=== PATIENT | male | born 1970 | race Caucasian/White ===

== ENCOUNTER 2023-01-12 08:23 | Inpatient (IN) | payer OTHER ==
[2023-01-12] VITALS (23 sets, daily range): BP systolic 65–174; BP diastolic 45–103; PULSE 46–147; RESP 16–34; TEMP 93.7–98.2; O2SAT 81–100
[~2023-01-12] VITALS: Ht 188 cm; Wt 92.0 kg
[2023-01-12] MEDS ORDERED: NOREPINEPHRINE 8 MG/0.9 % NACL 250 ML IV ONE (08:32)
[2023-01-12] MEDS ORDERED: PHENYLEPHRINE HCL IN 0.9% NACL 400 MCG/10 ML SYRINGE IVP ONE ×2 (08:32→12:39)
[2023-01-12] MEDS ORDERED: PHENYLEPHRINE HCL 400 MG in DEXTROSE 5%-WATER 210 ML IV PRN (08:45)
[2023-01-12] MEDS ORDERED: SODIUM CHLORIDE 0.9% 2,000 ML IV ONE (08:45)
[2023-01-12 08:51] LABS: BASOPHILS % (AUTO) 0.8 % (0.0-2.0); EOSINOPHILS % (AUTO) 2.1 % (1.0-6.0); HEMATOCRIT 44.4 % (41-53); HEMOGLOBIN 14.9 g/dL (13.5-17.5); LYMPHOCYTES # (AUTO) 5.4 K/uL (1.0-4.8); LYMPHOCYTES % (AUTO) 54.1 % (22.0-44.0); MEAN CORPUSCULAR HEMOGLOBIN 31.2 pg (26.0-34.0); MEAN CORPUSCULAR HGB CONC 33.5 G/dL (31.0-37.0); MEAN CORPUSCULAR VOLUME 93 fL (80-100); MONOCYTES # (AUTO) 0.4 K/uL (0.1-1.0); MONOCYTES % (AUTO) 4.3 % (2.0-9.0); NEUTROPHILS # (AUTO) 3.9 K/uL (1.8-7.7); NEUTROPHILS % (AUTO) 38.7 % (40.0-70.0); PLATELET COUNT (AUTO) 231 K/uL (150-450); RED BLOOD CELL COUNT(AUTO) 4.76 MIL/uL (4.50-5.90); RED CELL DISTRIBUTION WIDTH 13.4 % (11.5-14.5)
[2023-01-12 08:56] LABS: ABG BASE EXCESS -5.4 mmol/L (-2.0-3.0); ABG CARBOXYHEMOGLOBIN 0.2 % (0.0-1.5); ABG HCO3 19.3 mmol/L (22.0-26.0); ABG METHEMOGLOBIN 0.3 % (0.0-1.5); ABG OXYGEN CONTENT 20.7 mL/dL (15.0-23.0); ABG OXYGEN SATURATION 99.4 % (95.0-98.0); ABG OXYHEMOGLOBIN 98.9 % (94.0-100.0); ABG PCO2 58 mmHg (35-45); ABG TOTAL HEMOGLOBIN 14.4 G/dL (12.0-18.0); PO2, ARTERIAL BG 294.6 mmHg (84.0-92.0); SOURCE, BLOOD GAS ARTERIAL; TEMPERATURE, FAHRENHEIT, BG 95.2 FAHREN (96.0-98.6)
[2023-01-12] MEDS ORDERED: IOHEXOL 350 MG/ML 150 ML VIAL ONE (08:57)
[2023-01-12] MEDS ORDERED: SODIUM CHLORIDE 0.9% 100 ML ONE (08:57)
[2023-01-12 08:58] LABS: ABG PH 7.206 (7.35-7.450); O2 DEVICE,BLOOD GAS VENTILATOR (ROOM AIR); PEEP,BG 5 cm H2O; SITE, BLOOD GAS RT BRACHIAL; VT, ABG 430 ml
[2023-01-12 09:00] LABS: PROTHROMBIN TIME 10.8 SEC (9.4-11.6)
[2023-01-12 09:04] LABS: ANION GAP 15 mmol/L (8-16); CALCIUM, TOTAL 8.1 mg/dL (8.8-10.5); CARBON DIOXIDE 23 mmol/L (22-29); CHLORIDE 104 mmol/L (98-107); CREATININE 1.27 mg/dL (0.60-1.30); GLOMERULAR FILTR. RATE CALC 59 mL/min (>60); GLUCOSE,RANDOM 218 mg/dL (70-110); POTASSIUM 3.5 mmol/L (3.5-5.1); SODIUM SERUM 142 mmol/L (136-145)
[2023-01-12 09:13] LABS: B-TYPE NATRIURETIC PEPTIDE 15 pg/mL (0-100)
[2023-01-12] MEDS: PROPOFOL 1000 MG/ISO-OSM 100 ML IV PRN ×4 (09:15→23:28)
[2023-01-12 09:17] LABS: APPEARANCE,URINE HAZY (CLEAR); BILIRUBIN,URINE NEGATIVE (NEGATIVE); GLUCOSE, URINE (UA) 70-100 mg/dL (NEGATIVE); KETONES,URINE NEGATIVE (NEGATIVE); LEUKOCYTE ESTERASE ,URINE NEGATIVE (NEGATIVE); NITRATE,URINE NEGATIVE (NEGATIVE); OCCULT BLOOD,URINE SMALL (NEGATIVE); PROTEIN,URINE 300-600,SEE CONFIRM mg/dL (NEGATIVE); UROBILINOGEN,URINE <=1.0 mg/dL (<=1.0)
[2023-01-12 09:21] LABS: AMMONIA 54 umol/L (11-32)
[2023-01-12 09:24] LABS: LACTIC ACID 3.8 mmol/L (0.4-2.0)
[2023-01-12 09:27] LABS: ALANINE AMINOTRANSFERASE 149 U/L (12-78); ALBUMIN 3.3 g/dL (3.4-5.0); ALKALINE PHOSPHATASE 38 U/L (46-116); ASPARTATE AMINOTRANSFERASE 103 U/L (15-37); CREATINE KINASE, TOTAL ONLY 114 U/L (39-308); PHOSPHORUS 6.1 mg/dL (2.5-4.9); TOTAL PROTEIN, SERUM 6.9 g/dL (6.4-8.2)
[2023-01-12 09:46] LABS: AMPHET/METH SCREEN,URINE NEGATIVE (NEGATIVE); BARBITURATE SCREEN, URINE NEGATIVE (NEGATIVE); BENZODIAZEPINES SCREEN,URINE NEGATIVE (NEGATIVE); CANNABINOID SCREEN,URINE NEGATIVE (NEGATIVE); COCAINE SCREEN,URINE NEGATIVE (NEGATIVE); METHADONE SCREEN, URINE NEGATIVE (NEGATIVE); OPIATE SCREEN,URINE NEGATIVE (NEGATIVE); PHENCYCLIDINE SCREEN,URINE NEGATIVE (NEGATIVE)
[2023-01-12 09:53] LABS: SULFOSALICYLIC ACID,URINE 3+ (Negative)
[2023-01-12 09:54] LABS: WBC,URINE 0-2 /HPF (0-5)
[2023-01-12 09:55] LABS: BACTERIA,URINE Few /HPF (None Seen); SQUAMOUS EPITHELIAL CELL,UR Few /LPF (None Seen)
[2023-01-12] MEDS ORDERED: AMIODARONE HCL 150 MG in DEXTROSE 5%-WATER 97 ML IV ONE (10:00)
[2023-01-12] MEDS ORDERED: DEXTROSE 50%-WATER 25 GM/50 ML SYRINGE IVP PRN ×2 (10:00→11:00)
[2023-01-12] MEDS ORDERED: ONDANSETRON HCL 4 MG/2 ML VIAL IVP PRN (10:00)
[2023-01-12] MEDS ORDERED: INSULIN LISPRO 100 UNITS/ML SQ PRN ×2 (10:00→11:00)
[2023-01-12] MEDS ORDERED: BISACODYL 10 MG RECTAL RECTAL SUPPOSITORY PR PRN (10:00)
[2023-01-12] MEDS ORDERED: AMIODARONE HCL 360 MG in DEXTROSE 5%-WATER 242.8 ML IV ONE (10:00)
[2023-01-12 10:22] LABS: COVID AG,FIA SOURCE NASOPHARYNGEAL
[2023-01-12] MEDS ORDERED: NOREPINEPHRINE 8 MG/0.9 % NACL 250 ML IV PRN ×2 (10:30→23:15)
[2023-01-12 10:42] LABS: BASOPHILS % (AUTO) 0.4 % (0.0-2.0); EOSINOPHILS % (AUTO) 0.8 % (1.0-6.0); HEMATOCRIT 45.8 % (41-53); HEMOGLOBIN 15.1 g/dL (13.5-17.5); LYMPHOCYTES # (AUTO) 4.1 K/uL (1.0-4.8); LYMPHOCYTES % (AUTO) 21.4 % (22.0-44.0); MEAN CORPUSCULAR HEMOGLOBIN 30.9 pg (26.0-34.0); MEAN CORPUSCULAR HGB CONC 32.9 G/dL (31.0-37.0); MEAN CORPUSCULAR VOLUME 94 fL (80-100); MONOCYTES # (AUTO) 1.2 K/uL (0.1-1.0); MONOCYTES % (AUTO) 6.1 % (2.0-9.0); NEUTROPHILS # (AUTO) 13.6 K/uL (1.8-7.7); NEUTROPHILS % (AUTO) 71.3 % (40.0-70.0); PLATELET COUNT (AUTO) 225 K/uL (150-450); RED BLOOD CELL COUNT(AUTO) 4.88 MIL/uL (4.50-5.90); RED CELL DISTRIBUTION WIDTH 13.5 % (11.5-14.5)
[2023-01-12] MEDS ORDERED: PIPERACILLIN/TAZO 3.375 GM/D5W 50 ML IV ONE (10:45)
[2023-01-12] MEDS ORDERED: VANCOMYCIN HCL 1.25 GM in DEXTROSE 5%-WATER 250 ML IV ONE (10:45)
[2023-01-12] MEDS ORDERED: AZITHROMYCIN 500 MG/NS 250 ML IV ONE (10:45)
[2023-01-12 10:50] LABS: INFLUENZA TYPE A NEGATIVE FOR TYPE A (NEGATIVE); INFLUENZA TYPE B NEGATIVE FOR TYPE B (NEGATIVE)
[2023-01-12 10:54] LABS: ANION GAP 12 mmol/L (8-16); CALCIUM, TOTAL 7.7 mg/dL (8.8-10.5); CARBON DIOXIDE 24 mmol/L (22-29); CHLORIDE 105 mmol/L (98-107); GLOMERULAR FILTR. RATE CALC > 60 mL/min (>60); GLUCOSE,RANDOM 198 mg/dL (70-110); POTASSIUM 3.2 mmol/L (3.5-5.1); SODIUM SERUM 141 mmol/L (136-145)
[2023-01-12 10:57] LABS: ALANINE AMINOTRANSFERASE 158 U/L (12-78); ALBUMIN 3.2 g/dL (3.4-5.0); ALKALINE PHOSPHATASE 38 U/L (46-116); ASPARTATE AMINOTRANSFERASE 121 U/L (15-37); BILIRUBIN,TOTAL 1.2 mg/dL (0.1-1.0); PHOSPHORUS 4.9 mg/dL (2.5-4.9); TOTAL PROTEIN, SERUM 6.5 g/dL (6.4-8.2)
[2023-01-12] MEDS ORDERED: MIDAZOLAM HCL 100 MG in SODIUM CHLORIDE 0.9% 180 ML IV PRN (11:00)
[2023-01-12 11:06] LABS: LACTIC ACID 4.7 mmol/L (0.4-2.0)
[2023-01-12] MEDS ORDERED: SODIUM CHLORIDE 0.9% 1,000 ML IV ONE (11:15)
[2023-01-12 11:59] LABS: CHOL/HDL RATIO 2.3 (4.2-7.3)
[2023-01-12] MEDS ORDERED: ACETAMINOPHEN 650 MG RECTAL SUPPOSITORY PR PRN (12:00)
[2023-01-12] MEDS ORDERED: IOHEXOL 300 MG/ML 100 ML VIAL ONE ×2 (12:03)
[2023-01-12] MEDS ORDERED: LIDOCAINE/PF 1% 30 ML VIAL ONE (12:03)
[2023-01-12] MEDS ORDERED: SODIUM BICARBONATE 50 MEQ/50 ML VIAL ONE (12:03)
[2023-01-12] MEDS ORDERED: HEPARIN SODIUM 1000 UNITS/NS 1,000 ML ONE (12:03)
[2023-01-12] MEDS ORDERED: PHENYLEPHRINE 200 MG/D5%-WATER 0 ML IV ONE (12:39)
[2023-01-12] MEDS ORDERED: HydrALAZINE HCL 20 MG/ML VIAL ONE (13:07)
[2023-01-12] MEDS ORDERED: IOHEXOL 300 MG/ML 50 ML VIAL ONE (13:10)
[2023-01-12] MEDS ORDERED: LIDOCAINE 1% 30 ML/SOD BICARB 8.4% 4 ML SQ ONE (13:15)
[2023-01-12] MEDS ORDERED: HEPARIN SODIUM 1000 UNITS/NS 1,000 ML IARTER ONE (13:15)
[2023-01-12] MEDS ORDERED: HydrALAZINE HCL 20 MG/ML VIAL IVP ONE (13:15)
[2023-01-12] MEDS ORDERED: IOHEXOL 300 MG/ML 100 ML VIAL IARTER ONE (13:15)
[2023-01-12] MEDS: POTASSIUM CHL 10 MEQ/WATER 50 ML IV PRN (13:18)
[2023-01-12] MEDS ORDERED: FUROSEMIDE 40 MG/4 ML VIAL ONE (13:23)
[2023-01-12] MEDS ORDERED: FentaNYL CITRATE PF 100 MCG/2 ML VIAL ONE (13:29)
[2023-01-12] MEDS ORDERED: FentaNYL CITRATE PF 100 MCG/2 ML VIAL IVP ONE (13:45)
[2023-01-12] MEDS ORDERED: FUROSEMIDE 40 MG/4 ML VIAL IVP ONE (13:45)
[2023-01-12] MEDS ORDERED: HEPARIN SODIUM,PORCINE 5,000 UNITS/ML VIAL IVP PRN ×2 (13:45)
[2023-01-12] MEDS ORDERED: POTASSIUM CHLORIDE 10% 40 MEQ/30 ML LIQUID UDCUP NG ONE (13:45)
[2023-01-12] MEDS ORDERED: VECURONIUM BROMIDE 10 MG/VIAL ONE (14:39)
[2023-01-12] MEDS ORDERED: ETOMIDATE 2 MG/ML 10 ML VIAL ONE (14:39)
[2023-01-12 15:01] LABS: BASOPHILS % (AUTO) 0.2 % (0.0-2.0); EOSINOPHILS % (AUTO) 0.2 % (1.0-6.0); HEMATOCRIT 46.6 % (41-53); LYMPHOCYTES # (AUTO) 1.7 K/uL (1.0-4.8); LYMPHOCYTES % (AUTO) 9.4 % (22.0-44.0); MEAN CORPUSCULAR HEMOGLOBIN 30.7 pg (26.0-34.0); MEAN CORPUSCULAR HGB CONC 32.3 G/dL (31.0-37.0); MEAN CORPUSCULAR VOLUME 95 fL (80-100); MONOCYTES # (AUTO) 0.9 K/uL (0.1-1.0); MONOCYTES % (AUTO) 5.1 % (2.0-9.0); NEUTROPHILS # (AUTO) 15.1 K/uL (1.8-7.7); NEUTROPHILS % (AUTO) 85.1 % (40.0-70.0); PLATELET COUNT (AUTO) 246 K/uL (150-450); RED BLOOD CELL COUNT(AUTO) 4.91 MIL/uL (4.50-5.90)
[2023-01-12 15:16] LABS: INR 1.1 (0.9-1.1); PROTHROMBIN TIME 11.2 SEC (9.4-11.6)
[2023-01-12] MEDS: FentaNYL CIT 1000MCG/0.9% NACL 100 ML IV PRN ×2 (15:17→20:31)
[2023-01-12] MEDS ORDERED: HEPARIN SODIUM,PORCINE 5,000 UNITS/ML VIAL SQ SCH (16:00)
[2023-01-12] MEDS ORDERED: AMIODARONE HCL 540 MG in DEXTROSE 5%-WATER 239.2 ML IV ONE (16:00)
[2023-01-12 16:57] LABS: ALBUMIN 3.5 g/dL (3.4-5.0); POTASSIUM 4.5 mmol/L (3.5-5.1); TOTAL PROTEIN, SERUM 7.5 g/dL (6.4-8.2)
[2023-01-12 16:58] LABS: BILIRUBIN,TOTAL 1.4 mg/dL (0.1-1.0); CALCIUM, TOTAL 8.5 mg/dL (8.8-10.5); CREATININE 1.35 mg/dL (0.60-1.30)
[2023-01-12] MEDS: HEPARIN SODIUM 25000 UNITS/D5W 250 ML IV PRN (17:59)
[2023-01-12 20:05] LABS: ABG BASE EXCESS -8.4 mmol/L (-2.0-3.0); ABG HCO3 17.3 mmol/L (22.0-26.0); ABG METHEMOGLOBIN 0.3 % (0.0-1.5); ABG OXYGEN CONTENT 23.8 mL/dL (15.0-23.0); ABG OXYGEN SATURATION 98.9 % (95.0-98.0); ABG OXYHEMOGLOBIN 97.6 % (94.0-100.0); ABG PCO2 58 mmHg (35-45); ABG TOTAL HEMOGLOBIN 17.2 G/dL (12.0-18.0); PO2, ARTERIAL BG 151.9 mmHg (84.0-92.0); SOURCE, BLOOD GAS ARTERIAL; TEMPERATURE, FAHRENHEIT, BG 97.9 FAHREN (96.0-98.6)
[2023-01-12 20:06] LABS: ABG PH 7.161 (7.35-7.450); O2 DEVICE,BLOOD GAS VENTILATOR (ROOM AIR); PEEP,BG 5 cm H2O; SITE, BLOOD GAS RT RADIAL; VT, ABG 430 ml
[2023-01-12] MEDS: FUROSEMIDE 40 MG/4 ML VIAL IVP SCH (20:26)
[2023-01-12] MEDS ORDERED: BusPIRone HCL 15 MG TABLET PO PRN (21:15)
[2023-01-12] MEDS: DOPamine 400MG/D5W[STANDARD] 250 ML IV PRN (21:27)
[2023-01-12 22:09] LABS: MAGNESIUM 2.5 mg/dL (1.80-2.40); PHOSPHORUS 5.3 mg/dL (2.5-4.9)
[2023-01-12 23:07] LABS: ALBUMIN 3.9 g/dL (3.4-5.0); BILIRUBIN,TOTAL 1.5 mg/dL (0.1-1.0); CALCIUM, TOTAL 8.4 mg/dL (8.8-10.5); CREATININE 1.35 mg/dL (0.60-1.30); POTASSIUM 4.2 mmol/L (3.5-5.1); TOTAL PROTEIN, SERUM 8.1 g/dL (6.4-8.2)
[2023-01-12] MEDS ORDERED: PHENYLEPHRINE 200 MG/D5%-WATER 250 ML IV PRN (23:15)
[2023-01-13] VITALS (17 sets, daily range): BP systolic 114–145; BP diastolic 64–80; PULSE 47–98; RESP 21–31; TEMP 89.8–94.6; O2SAT 98–100
[2023-01-13] MEDS: ACETAMINOPHEN 325 MG TABLET PO PRN (00:49)
[2023-01-13] MEDS: FentaNYL CIT 1000MCG/0.9% NACL 100 ML IV PRN ×4 (02:20→18:33)
[2023-01-13] MEDS: MIDAZOLAM HCL 100 MG in SODIUM CHLORIDE 0.9% 180 ML IV PRN ×3 (02:22→22:16)
[2023-01-13] MEDS: PROPOFOL 1000 MG/ISO-OSM 100 ML IV PRN ×6 (03:15→22:17)
[2023-01-13 04:44] LABS: BASOPHILS % (AUTO) 0.5 % (0.0-2.0); EOSINOPHILS % (AUTO) 0.1 % (1.0-6.0); HEMATOCRIT 48.5 % (41-53); HEMOGLOBIN 16.6 g/dL (13.5-17.5); LYMPHOCYTES # (AUTO) 1.3 K/uL (1.0-4.8); LYMPHOCYTES % (AUTO) 9.1 % (22.0-44.0); MEAN CORPUSCULAR HEMOGLOBIN 31.1 pg (26.0-34.0); MEAN CORPUSCULAR HGB CONC 34.1 G/dL (31.0-37.0); MEAN CORPUSCULAR VOLUME 91 fL (80-100); MONOCYTES # (AUTO) 1.1 K/uL (0.1-1.0); MONOCYTES % (AUTO) 7.1 % (2.0-9.0); NEUTROPHILS # (AUTO) 12.4 K/uL (1.8-7.7); NEUTROPHILS % (AUTO) 83.2 % (40.0-70.0); PLATELET COUNT (AUTO) 190 K/uL (150-450); RED BLOOD CELL COUNT(AUTO) 5.32 MIL/uL (4.50-5.90); RED CELL DISTRIBUTION WIDTH 13.5 % (11.5-14.5)
[2023-01-13 05:01] LABS: ALANINE AMINOTRANSFERASE 170 U/L (12-78); ALBUMIN 3.6 g/dL (3.4-5.0); ALKALINE PHOSPHATASE 43 U/L (46-116); ANION GAP 13 mmol/L (8-16); ASPARTATE AMINOTRANSFERASE 109 U/L (15-37); BILIRUBIN,TOTAL 1.9 mg/dL (0.1-1.0); CALCIUM, TOTAL 8.8 mg/dL (8.8-10.5); CARBON DIOXIDE 25 mmol/L (22-29); CHLORIDE 103 mmol/L (98-107); CREATININE 1.05 mg/dL (0.60-1.30); GLOMERULAR FILTR. RATE CALC > 60 mL/min (>60); GLUCOSE,RANDOM 124 mg/dL (70-110); PHOSPHORUS 4.6 mg/dL (2.5-4.9); POTASSIUM 3.8 mmol/L (3.5-5.1); SODIUM SERUM 141 mmol/L (136-145); TOTAL PROTEIN, SERUM 7.6 g/dL (6.4-8.2)
[2023-01-13] MEDS: DOPamine 400MG/D5W[STANDARD] 250 ML IV PRN ×2 (05:29→22:16)
[2023-01-13 08:24] LABS: PHOSPHORUS 3.6 mg/dL (2.5-4.9)
[2023-01-13] MEDS: PANTOPRAZOLE SODIUM 40 MG/VIAL IVP SCH (09:03)
[2023-01-13] MEDS: FUROSEMIDE 40 MG/4 ML VIAL IVP SCH (09:03)
[2023-01-13 09:06] LABS: ABG A-A DIFF O2 166.7 mmHg (10-20.0); ABG BASE EXCESS 1.2 mmol/L (-2.0-3.0); ABG CARBOXYHEMOGLOBIN 0.8 % (0.0-1.5); ABG HCO3 25.9 mmol/L (22.0-26.0); ABG METHEMOGLOBIN 0.1 % (0.0-1.5); ABG OXYGEN CONTENT 23.9 mL/dL (15.0-23.0); ABG OXYGEN SATURATION 98.8 % (95.0-98.0); ABG OXYHEMOGLOBIN 97.9 % (94.0-100.0); ABG PCO2 29 mmHg (35-45); ABG PH 7.532 (7.35-7.450); ABG TOTAL HEMOGLOBIN 17.3 G/dL (12.0-18.0); O2 DEVICE,BLOOD GAS VENTILATOR (ROOM AIR); PEEP,BG 5 cm H2O; PO2, ARTERIAL BG 89.5 mmHg (84.0-92.0); SITE, BLOOD GAS RT RADIAL; SOURCE, BLOOD GAS ARTERIAL; TEMPERATURE, FAHRENHEIT, BG 89.6 FAHREN (96.0-98.6); VT, ABG 480 ml
[2023-01-13 09:06] LABS: ALANINE AMINOTRANSFERASE 165 U/L (12-78); ALBUMIN 3.6 g/dL (3.4-5.0); ALKALINE PHOSPHATASE 43 U/L (46-116); ANION GAP 11 mmol/L (8-16); ASPARTATE AMINOTRANSFERASE 130 U/L (15-37); BILIRUBIN,TOTAL 2.2 mg/dL (0.1-1.0); CARBON DIOXIDE 24 mmol/L (22-29); CHLORIDE 103 mmol/L (98-107); CREATININE 0.92 mg/dL (0.60-1.30); GLOMERULAR FILTR. RATE CALC > 60 mL/min (>60); GLUCOSE,RANDOM 124 mg/dL (70-110); POTASSIUM 3.4 mmol/L (3.5-5.1); SODIUM SERUM 138 mmol/L (136-145); TOTAL PROTEIN, SERUM 7.6 g/dL (6.4-8.2)
[2023-01-13] MEDS: AMIODARONE HCL 750 MG in DEXTROSE 5%-WATER 485 ML IV SCH (09:25)
[2023-01-13] MEDS: HEPARIN SODIUM 25000 UNITS/D5W 250 ML IV PRN (09:28)
[2023-01-13 10:35] LABS: ABG BASE EXCESS 0.7 mmol/L (-2.0-3.0); ABG HCO3 25.2 mmol/L (22.0-26.0); ABG OXYGEN CONTENT 23.4 mL/dL (15.0-23.0); ABG PCO2 34 mmHg (35-45); ABG PH 7.469 (7.35-7.450); ABG TOTAL HEMOGLOBIN 17.1 G/dL (12.0-18.0); PO2, ARTERIAL BG 79.7 mmHg (84.0-92.0); SOURCE, BLOOD GAS ARTERIAL; TEMPERATURE, FAHRENHEIT, BG 93.2 FAHREN (96.0-98.6)
[2023-01-13 10:36] LABS: ABG A-A DIFF O2 168.8 mmHg (10-20.0); O2 DEVICE,BLOOD GAS VENTILATOR (ROOM AIR); PEEP,BG 5 cm H2O; SITE, BLOOD GAS RT RADIAL; VT, ABG 480 ml
[2023-01-13 12:17] LABS: ANION GAP 12 mmol/L (8-16); CALCIUM, TOTAL 8.7 mg/dL (8.8-10.5); CARBON DIOXIDE 26 mmol/L (22-29); CHLORIDE 103 mmol/L (98-107); CREATININE 0.92 mg/dL (0.60-1.30); GLOMERULAR FILTR. RATE CALC > 60 mL/min (>60); GLUCOSE,RANDOM 120 mg/dL (70-110); POTASSIUM 3.1 mmol/L (3.5-5.1); SODIUM SERUM 141 mmol/L (136-145)
[2023-01-13] MEDS: POTASSIUM CHL 10 MEQ/WATER 50 ML IV PRN ×5 (12:24→20:39)
[2023-01-13 14:49] LABS: ABG A-A DIFF O2 132.9 mmHg (10-20.0); ABG BASE EXCESS 1.4 mmol/L (-2.0-3.0); ABG CARBOXYHEMOGLOBIN 0.7 % (0.0-1.5); ABG HCO3 24.8 mmol/L (22.0-26.0); ABG METHEMOGLOBIN 0.1 % (0.0-1.5); ABG OXYGEN CONTENT 24.2 mL/dL (15.0-23.0); ABG OXYGEN SATURATION 98.6 % (95.0-98.0); ABG OXYHEMOGLOBIN 97.8 % (94.0-100.0); ABG PCO2 44 mmHg (35-45); ABG PH 7.393 (7.35-7.450); ABG TOTAL HEMOGLOBIN 17.5 G/dL (12.0-18.0); O2 DEVICE,BLOOD GAS VENTILATOR (ROOM AIR); PEEP,BG 5 cm H2O; PO2, ARTERIAL BG 105.3 mmHg (84.0-92.0); SITE, BLOOD GAS RT RADIAL; SOURCE, BLOOD GAS ARTERIAL; TEMPERATURE, FAHRENHEIT, BG 92.1 FAHREN (96.0-98.6); VT, ABG 430 ml
[2023-01-13] MEDS ORDERED: SODIUM CHLORIDE 0.9% 1,000 ML IV ONE (15:30)
[2023-01-13 16:57] LABS: ALANINE AMINOTRANSFERASE 154 U/L (12-78); ALBUMIN 3.4 g/dL (3.4-5.0); ALKALINE PHOSPHATASE 41 U/L (46-116); ANION GAP 10 mmol/L (8-16); ASPARTATE AMINOTRANSFERASE 152 U/L (15-37); BILIRUBIN,TOTAL 2.2 mg/dL (0.1-1.0); CALCIUM, TOTAL 8.6 mg/dL (8.8-10.5); CARBON DIOXIDE 28 mmol/L (22-29); CHLORIDE 103 mmol/L (98-107); GLOMERULAR FILTR. RATE CALC > 60 mL/min (>60); GLUCOSE,RANDOM 120 mg/dL (70-110); SODIUM SERUM 141 mmol/L (136-145); TOTAL PROTEIN, SERUM 7.4 g/dL (6.4-8.2)
[2023-01-13 17:11] LABS: POTASSIUM 2.8 mmol/L (3.5-5.1)
[2023-01-13] MEDS ORDERED: POTASSIUM CHLORIDE 10% 40 MEQ/30 ML LIQUID UDCUP NG ONE ×2 (17:15→18:00)
[2023-01-13] MEDS ORDERED: SODIUM BICARBONATE [ADULT] 8.4% 50 MEQ/50 ML SYRINGE IVP ONE (17:33)
[2023-01-13] MEDS ORDERED: EPINEPHrine 1:10,000 [1 MG/10 ML] SYRINGE IVP ONE (17:33)
[2023-01-13] MEDS: FUROSEMIDE 20 MG/2 ML VIAL IVP SCH (19:58)
[2023-01-13 23:15] LABS: ALANINE AMINOTRANSFERASE 135 U/L (12-78); ALBUMIN 2.9 g/dL (3.4-5.0); ALKALINE PHOSPHATASE 39 U/L (46-116); ANION GAP 8 mmol/L (8-16); ASPARTATE AMINOTRANSFERASE 130 U/L (15-37); BILIRUBIN,TOTAL 1.8 mg/dL (0.1-1.0); CALCIUM, TOTAL 8.2 mg/dL (8.8-10.5); CARBON DIOXIDE 30 mmol/L (22-29); CHLORIDE 103 mmol/L (98-107); CREATININE 0.99 mg/dL (0.60-1.30); GLOMERULAR FILTR. RATE CALC > 60 mL/min (>60); GLUCOSE,RANDOM 125 mg/dL (70-110); POTASSIUM 3.9 mmol/L (3.5-5.1); SODIUM SERUM 141 mmol/L (136-145); TOTAL PROTEIN, SERUM 6.8 g/dL (6.4-8.2)
[2023-01-14] VITALS (17 sets, daily range): BP systolic 88–118; BP diastolic 50–70; PULSE 68–88; RESP 22–23; TEMP 96.8–101.4; O2SAT 96–99
[2023-01-14] MEDS: FentaNYL CIT 1000MCG/0.9% NACL 100 ML IV PRN (03:02)
[2023-01-14] MEDS: ACETAMINOPHEN 325 MG TABLET PO PRN ×3 (03:53→17:49)
[2023-01-14 05:33] LABS: ALANINE AMINOTRANSFERASE 125 U/L (12-78); ALBUMIN 2.6 g/dL (3.4-5.0); ALKALINE PHOSPHATASE 38 U/L (46-116); ANION GAP 6 mmol/L (8-16); ASPARTATE AMINOTRANSFERASE 112 U/L (15-37); BILIRUBIN,TOTAL 1.5 mg/dL (0.1-1.0); CARBON DIOXIDE 29 mmol/L (22-29); CHLORIDE 103 mmol/L (98-107); CREATININE 1.11 mg/dL (0.60-1.30); GLOMERULAR FILTR. RATE CALC > 60 mL/min (>60); GLUCOSE,RANDOM 120 mg/dL (70-110); PHOSPHORUS 4.5 mg/dL (2.5-4.9); POTASSIUM 4.4 mmol/L (3.5-5.1); SODIUM SERUM 138 mmol/L (136-145); TOTAL PROTEIN, SERUM 6.4 g/dL (6.4-8.2)
[2023-01-14 05:39] LABS: B-TYPE NATRIURETIC PEPTIDE 425 pg/mL (0-100)
[2023-01-14] MEDS: PIPERACILLIN/TAZO 3.375 GM/D5W 50 ML IV SCH ×3 (08:33→21:07)
[2023-01-14] MEDS: HEPARIN SODIUM 25000 UNITS/D5W 250 ML IV PRN (08:33)
[2023-01-14] MEDS: PANTOPRAZOLE SODIUM 40 MG/VIAL IVP SCH (08:34)
[2023-01-14] MEDS: FUROSEMIDE 20 MG/2 ML VIAL IVP SCH (08:34)
[2023-01-14 08:43] LABS: MAGNESIUM 1.9 mg/dL (1.80-2.40); PHOSPHORUS 4.4 mg/dL (2.5-4.9)
[2023-01-14 10:46] LABS: ALANINE AMINOTRANSFERASE 123 U/L (12-78); ALBUMIN 2.6 g/dL (3.4-5.0); ALKALINE PHOSPHATASE 38 U/L (46-116); ANION GAP 7 mmol/L (8-16); ASPARTATE AMINOTRANSFERASE 107 U/L (15-37); BILIRUBIN,TOTAL 1.5 mg/dL (0.1-1.0); CALCIUM, TOTAL 8.2 mg/dL (8.8-10.5); CARBON DIOXIDE 29 mmol/L (22-29); CHLORIDE 103 mmol/L (98-107); CREATININE 1.12 mg/dL (0.60-1.30); GLOMERULAR FILTR. RATE CALC > 60 mL/min (>60); GLUCOSE,RANDOM 110 mg/dL (70-110); SODIUM SERUM 139 mmol/L (136-145); TOTAL PROTEIN, SERUM 6.6 g/dL (6.4-8.2)
[2023-01-14] MEDS: AMIODARONE HCL 750 MG in DEXTROSE 5%-WATER 485 ML IV SCH (12:57)
[2023-01-14] MEDS: DEXMEDETOMIDINE HCL 400 MCG in SODIUM CHLORIDE 0.9% 96 ML IV PRN ×2 (13:06→22:38)
[2023-01-14] MEDS: DOPamine 400MG/D5W[STANDARD] 250 ML IV PRN (13:19)
[2023-01-14 14:15] LABS: MAGNESIUM 1.7 mg/dL (1.80-2.40); PHOSPHORUS 3.8 mg/dL (2.5-4.9)
[2023-01-14] MEDS ORDERED: SODIUM CHLORIDE 0.9% 500 ML IV ONE (16:00)
[2023-01-14 17:24] LABS: ALBUMIN 2.4 g/dL (3.4-5.0); BILIRUBIN,TOTAL 1.6 mg/dL (0.1-1.0); CREATININE 1.29 mg/dL (0.60-1.30); POTASSIUM 3.9 mmol/L (3.5-5.1); TOTAL PROTEIN, SERUM 6.3 g/dL (6.4-8.2)
[2023-01-14] MEDS: PROPOFOL 1000 MG/ISO-OSM 100 ML IV PRN (18:08)
[2023-01-14] MEDS ORDERED: SODIUM CHLORIDE 0.9% 250 ML IV ONE (23:52)
[2023-01-15] VITALS (12 sets, daily range): BP systolic 101–142; BP diastolic 56–85; PULSE 60–95; RESP 12–24; TEMP 99.2–100.8; O2SAT 93–98
[2023-01-15] MEDS: ACETAMINOPHEN 325 MG TABLET PO PRN ×6 (00:16→20:32)
[2023-01-15] MEDS: PIPERACILLIN/TAZO 3.375 GM/D5W 50 ML IV SCH ×4 (01:14→20:23)
[2023-01-15] MEDS: HEPARIN SODIUM 25000 UNITS/D5W 250 ML IV PRN (01:16)
[2023-01-15] MEDS: PROPOFOL 1000 MG/ISO-OSM 100 ML IV PRN ×2 (05:25→10:39)
[2023-01-15 05:35] LABS: BASOPHILS % (AUTO) 0.1 % (0.0-2.0); EOSINOPHILS % (AUTO) 0.7 % (1.0-6.0); HEMOGLOBIN 12.6 g/dL (13.5-17.5); LYMPHOCYTES # (AUTO) 1.2 K/uL (1.0-4.8); MEAN CORPUSCULAR HEMOGLOBIN 30.3 pg (26.0-34.0); MEAN CORPUSCULAR HGB CONC 33.3 G/dL (31.0-37.0); MEAN CORPUSCULAR VOLUME 91 fL (80-100); MONOCYTES # (AUTO) 0.6 K/uL (0.1-1.0); MONOCYTES % (AUTO) 5.4 % (2.0-9.0); NEUTROPHILS # (AUTO) 9.9 K/uL (1.8-7.7); NEUTROPHILS % (AUTO) 83.8 % (40.0-70.0); PLATELET COUNT (AUTO) 158 K/uL (150-450); RED BLOOD CELL COUNT(AUTO) 4.18 MIL/uL (4.50-5.90)
[2023-01-15 05:47] LABS: ALANINE AMINOTRANSFERASE 86 U/L (12-78); ALBUMIN 2.3 g/dL (3.4-5.0); ALKALINE PHOSPHATASE 31 U/L (46-116); ANION GAP 4 mmol/L (8-16); ASPARTATE AMINOTRANSFERASE 62 U/L (15-37); BILIRUBIN,TOTAL 1.7 mg/dL (0.1-1.0); CALCIUM, TOTAL 8.4 mg/dL (8.8-10.5); CARBON DIOXIDE 31 mmol/L (22-29); CHLORIDE 101 mmol/L (98-107); CREATININE 1.23 mg/dL (0.60-1.30); GLOMERULAR FILTR. RATE CALC > 60 mL/min (>60); GLUCOSE,RANDOM 118 mg/dL (70-110); PHOSPHORUS 3.2 mg/dL (2.5-4.9); POTASSIUM 3.4 mmol/L (3.5-5.1); SODIUM SERUM 136 mmol/L (136-145); TOTAL PROTEIN, SERUM 6.2 g/dL (6.4-8.2)
[2023-01-15] MEDS: POTASSIUM CHL 10 MEQ/WATER 50 ML IV PRN ×3 (06:08→10:44)
[2023-01-15] MEDS ORDERED: SODIUM CHLORIDE 0.9% 500 ML IV ONE (08:51)
[2023-01-15] MEDS: QUEtiapine FUMARATE 25 MG TABLET NG SCH ×2 (10:25→20:23)
[2023-01-15] MEDS: PANTOPRAZOLE SODIUM 40 MG/VIAL IVP SCH (10:25)
[2023-01-15] MEDS: AMIODARONE HCL 750 MG in DEXTROSE 5%-WATER 485 ML IV SCH (10:26)
[2023-01-15 12:47] LABS: ABG BASE EXCESS 5.4 mmol/L (-2.0-3.0); ABG CARBOXYHEMOGLOBIN 0.8 % (0.0-1.5); ABG HCO3 28.9 mmol/L (22.0-26.0); ABG METHEMOGLOBIN 0.3 % (0.0-1.5); ABG OXYGEN CONTENT 17.3 mL/dL (15.0-23.0); ABG OXYGEN SATURATION 94.9 % (95.0-98.0); ABG OXYHEMOGLOBIN 93.9 % (94.0-100.0); ABG PCO2 43 mmHg (35-45); ABG PH 7.453 (7.35-7.450); ABG TOTAL HEMOGLOBIN 13.1 G/dL (12.0-18.0); PO2, ARTERIAL BG 74.9 mmHg (84.0-92.0); SOURCE, BLOOD GAS ARTERIAL; TEMPERATURE, FAHRENHEIT, BG 100.3 FAHREN (96.0-98.6)
[2023-01-15 12:55] LABS: SITE, BLOOD GAS LFT RADIAL
[2023-01-15 12:56] LABS: O2 DEVICE,BLOOD GAS VENTILATOR (ROOM AIR); VENT MODE, BG Press. Support Vent. (ROOM AIR)
[2023-01-15 12:58] LABS: PEEP,BG 0 cm H2O; PRESSURE SUPPORT, BG 8 cm H2O
[2023-01-15 12:59] LABS: SPONTANEOUS VT, BG 557 ml
[2023-01-15 16:42] LABS: ABG A-A DIFF O2 151.6 mmHg (10-20.0); ABG BASE EXCESS 3.8 mmol/L (-2.0-3.0); ABG CARBOXYHEMOGLOBIN 0.5 % (0.0-1.5); ABG HCO3 27.6 mmol/L (22.0-26.0); ABG METHEMOGLOBIN 0.2 % (0.0-1.5); ABG OXYGEN CONTENT 16.7 mL/dL (15.0-23.0); ABG OXYHEMOGLOBIN 89.4 % (94.0-100.0); ABG PCO2 41 mmHg (35-45); ABG PH 7.454 (7.35-7.450); ABG TOTAL HEMOGLOBIN 13.3 G/dL (12.0-18.0); PO2, ARTERIAL BG 57.3 mmHg (84.0-92.0); SITE, BLOOD GAS RT RADIAL; SOURCE, BLOOD GAS ARTERIAL
[2023-01-15 16:43] LABS: O2 DEVICE,BLOOD GAS CANNULA (ROOM AIR)
[2023-01-15] MEDS: APIXABAN 5 MG TABLET PO SCH (20:23)
[2023-01-15] MEDS: AMIODARONE HCL 200 MG TABLET PO SCH (20:23)
[2023-01-16] VITALS: BP 136/82; PULSE 97; PULSE 98; RESP 27
[2023-01-16] MEDS: PIPERACILLIN/TAZO 3.375 GM/D5W 50 ML IV SCH ×4 (02:25→20:46)
[2023-01-16] MEDS: ACETAMINOPHEN 325 MG TABLET PO PRN ×2 (03:32→12:52)
[2023-01-16 04:00] VITALS: BP 116/79; PULSE 82; PULSE 86; RESP 15
[2023-01-16] MEDS: DEXMEDETOMIDINE HCL 400 MCG in SODIUM CHLORIDE 0.9% 96 ML IV PRN (05:08)
[2023-01-16 05:17] LABS: BASOPHILS % (AUTO) 0.3 % (0.0-2.0); EOSINOPHILS % (AUTO) 0.8 % (1.0-6.0); HEMATOCRIT 31.2 % (41-53); HEMOGLOBIN 10.4 g/dL (13.5-17.5); LYMPHOCYTES # (AUTO) 1.3 K/uL (1.0-4.8); LYMPHOCYTES % (AUTO) 11.5 % (22.0-44.0); MEAN CORPUSCULAR HEMOGLOBIN 30.4 pg (26.0-34.0); MEAN CORPUSCULAR HGB CONC 33.3 G/dL (31.0-37.0); MEAN CORPUSCULAR VOLUME 91 fL (80-100); MONOCYTES # (AUTO) 0.9 K/uL (0.1-1.0); NEUTROPHILS # (AUTO) 9.2 K/uL (1.8-7.7); NEUTROPHILS % (AUTO) 79.4 % (40.0-70.0); PLATELET COUNT (AUTO) 180 K/uL (150-450); RED BLOOD CELL COUNT(AUTO) 3.42 MIL/uL (4.50-5.90); RED CELL DISTRIBUTION WIDTH 13.4 % (11.5-14.5)
[2023-01-16 05:35] LABS: ALANINE AMINOTRANSFERASE 68 U/L (12-78); ALBUMIN 2.5 g/dL (3.4-5.0); ALKALINE PHOSPHATASE 34 U/L (46-116); ANION GAP 11 mmol/L (8-16); ASPARTATE AMINOTRANSFERASE 68 U/L (15-37); BILIRUBIN,TOTAL 2.1 mg/dL (0.1-1.0); CALCIUM, TOTAL 8.5 mg/dL (8.8-10.5); CARBON DIOXIDE 28 mmol/L (22-29); CHLORIDE 105 mmol/L (98-107); CREATININE 1.08 mg/dL (0.60-1.30); GLOMERULAR FILTR. RATE CALC > 60 mL/min (>60); GLUCOSE,RANDOM 97 mg/dL (70-110); POTASSIUM 3.3 mmol/L (3.5-5.1); SODIUM SERUM 144 mmol/L (136-145); TOTAL PROTEIN, SERUM 6.7 g/dL (6.4-8.2)
[2023-01-16] MEDS: MIDAZOLAM HCL 100 MG in SODIUM CHLORIDE 0.9% 180 ML IV PRN (06:07)
[2023-01-16 08:00] VITALS: BP 153/80; PULSE 74; RESP 20; TEMP 99.6
[2023-01-16] MEDS: AMIODARONE HCL 200 MG TABLET PO SCH ×2 (09:09→20:47)
[2023-01-16] MEDS: QUEtiapine FUMARATE 25 MG TABLET NG SCH ×2 (09:09→20:47)
[2023-01-16] MEDS: APIXABAN 5 MG TABLET PO SCH ×2 (09:09→20:47)
[2023-01-16] MEDS: PANTOPRAZOLE SODIUM 40 MG/VIAL IVP SCH (09:09)
[2023-01-16] MEDS: POTASSIUM CHL 10 MEQ/WATER 50 ML IV PRN ×2 (09:11→12:52)
[2023-01-16] MEDS ORDERED: SODIUM CHLORIDE 0.9% 250 ML IV ONE (09:17)
[2023-01-16 12:00] VITALS: BP 153/92; PULSE 82; RESP 17; TEMP 101
[2023-01-16] MEDS ORDERED: POTASSIUM CHLORIDE 20 MEQ ER TABLET PO PRN ×2 (14:15)
[2023-01-16] MEDS ORDERED: POTASSIUM CHLORIDE 10% 40 MEQ/30 ML LIQUID UDCUP PO PRN ×2 (14:15)
[2023-01-16] MEDS ORDERED: FUROSEMIDE 20 MG/2 ML VIAL IVP SCH (15:30)
[2023-01-16 16:00] VITALS: PULSE 90; RESP 15; TEMP 100.8
[2023-01-16] MEDS ORDERED: VANCOMYCIN HCL 1 GM in DEXTROSE 5%-WATER 250 ML IV ONE (17:00)
[2023-01-16 20:00] VITALS: BP 137/80; PULSE 87; RESP 20; TEMP 98.9
[2023-01-16] MEDS: VANCOMYCIN HCL 750 MG in DEXTROSE 5%-WATER 250 ML IV SCH (23:55)
[2023-01-17] VITALS (7 sets, daily range): BP systolic 96–152; BP diastolic 37–92; PULSE 76–88; RESP 18–32; TEMP 98–99.3; O2SAT 94–96
[2023-01-17] MEDS: PIPERACILLIN/TAZO 3.375 GM/D5W 50 ML IV SCH ×3 (02:29→13:36)
[2023-01-17 05:39] LABS: BASOPHILS % (AUTO) 0.6 % (0.0-2.0); EOSINOPHILS % (AUTO) 3.2 % (1.0-6.0); HEMATOCRIT 37.6 % (41-53); HEMOGLOBIN 12.7 g/dL (13.5-17.5); LYMPHOCYTES # (AUTO) 1.4 K/uL (1.0-4.8); MEAN CORPUSCULAR HEMOGLOBIN 30.9 pg (26.0-34.0); MEAN CORPUSCULAR HGB CONC 33.7 G/dL (31.0-37.0); MEAN CORPUSCULAR VOLUME 92 fL (80-100); MONOCYTES % (AUTO) 11.3 % (2.0-9.0); NEUTROPHILS # (AUTO) 6.4 K/uL (1.8-7.7); NEUTROPHILS % (AUTO) 69.9 % (40.0-70.0); PLATELET COUNT (AUTO) 188 K/uL (150-450); RED BLOOD CELL COUNT(AUTO) 4.09 MIL/uL (4.50-5.90); RED CELL DISTRIBUTION WIDTH 13.2 % (11.5-14.5)
[2023-01-17 05:49] LABS: ANION GAP 9 mmol/L (8-16); CALCIUM, TOTAL 8.9 mg/dL (8.8-10.5); CARBON DIOXIDE 26 mmol/L (22-29); CHLORIDE 105 mmol/L (98-107); CREATININE 1.03 mg/dL (0.60-1.30); GLOMERULAR FILTR. RATE CALC > 60 mL/min (>60); GLUCOSE,RANDOM 94 mg/dL (70-110); POTASSIUM 3.7 mmol/L (3.5-5.1); SODIUM SERUM 140 mmol/L (136-145)
[2023-01-17] MEDS: VANCOMYCIN HCL 750 MG in DEXTROSE 5%-WATER 250 ML IV SCH ×3 (07:36→23:21)
[2023-01-17] MEDS: APIXABAN 5 MG TABLET PO SCH ×2 (08:34→20:31)
[2023-01-17] MEDS: PANTOPRAZOLE SODIUM 40 MG/VIAL IVP SCH (08:34)
[2023-01-17] MEDS: AMIODARONE HCL 200 MG TABLET PO SCH ×2 (08:34→20:31)
[2023-01-17] MEDS: QUEtiapine FUMARATE 25 MG TABLET NG SCH ×2 (08:34→20:31)
[2023-01-17] MEDS ORDERED: SODIUM CHLORIDE 0.9% 1,000 ML IV ONE (13:00)
[2023-01-17] MEDS: CefTRIAXone SODIUM 2 GM in DEXTROSE 5%-WATER 50 ML IV SCH (18:27)
[2023-01-17] MEDS: MetroNIDAZOLE 500 MG TABLET PO SCH (20:31)
[2023-01-18] VITALS (8 sets, daily range): BP systolic 101–166; BP diastolic 30–99; PULSE 77–99; RESP 20–33; TEMP 98.6–99.9
[2023-01-18] MEDS: LORazepam 2 MG/ML VIAL IVP PRN ×2 (03:33→12:07)
[2023-01-18 05:38] LABS: ALBUMIN 2.7 g/dL (3.4-5.0); ALKALINE PHOSPHATASE 44 U/L (46-116); ANION GAP 11 mmol/L (8-16); ASPARTATE AMINOTRANSFERASE 44 U/L (15-37); BILIRUBIN,TOTAL 1.5 mg/dL (0.1-1.0); CALCIUM, TOTAL 9.3 mg/dL (8.8-10.5); CARBON DIOXIDE 25 mmol/L (22-29); CHLORIDE 105 mmol/L (98-107); CREATININE 1.02 mg/dL (0.60-1.30); GLOMERULAR FILTR. RATE CALC > 60 mL/min (>60); GLUCOSE,RANDOM 109 mg/dL (70-110); POTASSIUM 3.6 mmol/L (3.5-5.1); SODIUM SERUM 141 mmol/L (136-145); TOTAL PROTEIN, SERUM 7.8 g/dL (6.4-8.2)
[2023-01-18 06:00] LABS: ALANINE AMINOTRANSFERASE 60 U/L (12-78)
[2023-01-18] MEDS: QUEtiapine FUMARATE 25 MG TABLET NG SCH (07:55)
[2023-01-18] MEDS: APIXABAN 5 MG TABLET PO SCH ×2 (07:56→20:59)
[2023-01-18] MEDS: MetroNIDAZOLE 500 MG TABLET PO SCH ×3 (07:56→20:59)
[2023-01-18] MEDS: AMIODARONE HCL 200 MG TABLET PO SCH ×2 (07:56→21:00)
[2023-01-18] MEDS ORDERED: VANCOMYCIN HCL 1 GM in DEXTROSE 5%-WATER 250 ML IV SCH (08:00)
[2023-01-18] MEDS: PANTOPRAZOLE SODIUM 40 MG/VIAL IVP SCH (08:01)
[2023-01-18] MEDS: VANCOMYCIN 1GM/WATER(PEG/NADA) 200 ML IV SCH ×3 (08:07→23:42)
[2023-01-18] MEDS: CARVEDILOL 3.125 MG TABLET PO SCH ×2 (12:05→20:59)
[2023-01-18 13:01] LABS: FREE T4 (FREE THYROXINE) 1.2 ng/dL (0.76-1.46); THYROID STIMULATING HORMONE 3.83 uIU/mL (0.36-3.74)
[2023-01-18] MEDS: CefTRIAXone SODIUM 2 GM in DEXTROSE 5%-WATER 50 ML IV SCH (16:49)
[2023-01-18] MEDS: QUEtiapine FUMARATE 25 MG TABLET PO SCH (20:58)
[2023-01-18] MEDS ORDERED: SODIUM CHLORIDE 0.9% 1,000 ML ONE (23:37)
[2023-01-18] MEDS: ACETAMINOPHEN 325 MG TABLET PO PRN (23:43)
[2023-01-19 06:19] VITALS: BP 130/97; PULSE 80; RESP 21; TEMP 98.1
[2023-01-19 07:04] LABS: ANION GAP 12 mmol/L (8-16); CALCIUM, TOTAL 9.1 mg/dL (8.8-10.5); CARBON DIOXIDE 27 mmol/L (22-29); CHLORIDE 103 mmol/L (98-107); CREATININE 1.08 mg/dL (0.60-1.30); GLOMERULAR FILTR. RATE CALC > 60 mL/min (>60); GLUCOSE,RANDOM 100 mg/dL (70-110); POTASSIUM 3.7 mmol/L (3.5-5.1); SODIUM SERUM 142 mmol/L (136-145)
[2023-01-19 07:20] VITALS: BP 155/86; PULSE 68; RESP 18; TEMP 98.5
[2023-01-19] MEDS: PANTOPRAZOLE SODIUM 40 MG/VIAL IVP SCH (07:58)
[2023-01-19] MEDS: MetroNIDAZOLE 500 MG TABLET PO SCH ×3 (07:59→21:14)
[2023-01-19] MEDS: AMIODARONE HCL 200 MG TABLET PO SCH ×2 (07:59→21:14)
[2023-01-19] MEDS: APIXABAN 5 MG TABLET PO SCH ×2 (08:01→21:14)
[2023-01-19] MEDS: CARVEDILOL 3.125 MG TABLET PO SCH ×2 (08:02→21:14)
[2023-01-19] MEDS: VANCOMYCIN 1GM/WATER(PEG/NADA) 200 ML IV SCH ×3 (08:11→23:31)
[2023-01-19 11:34] VITALS: BP 132/77; PULSE 76; RESP 18; TEMP 98.9
[2023-01-19 15:16] VITALS: BP 128/73; PULSE 77; RESP 16; TEMP 98.8
[2023-01-19] MEDS: CefTRIAXone SODIUM 2 GM in DEXTROSE 5%-WATER 50 ML IV SCH (18:33)
[2023-01-19] MEDS: BENZONATATE 100 MG CAPSULE PO PRN (19:00)
[2023-01-19 19:59] VITALS: BP 149/85; PULSE 78; RESP 20; TEMP 98.4
[2023-01-19] MEDS: MUPIROCIN CALCIUM 2% 22 GM OINTMENT NASAL SCH (21:13)
[2023-01-19] MEDS: QUEtiapine FUMARATE 25 MG TABLET PO SCH (21:14)
[2023-01-20 00:18] VITALS: BP 135/66; PULSE 79; RESP 19; TEMP 98.3
[2023-01-20 05:42] VITALS: BP 122/76; PULSE 82; RESP 19; TEMP 98.3
[2023-01-20 07:08] LABS: ANION GAP 10 mmol/L (8-16); CALCIUM, TOTAL 9.1 mg/dL (8.8-10.5); CARBON DIOXIDE 27 mmol/L (22-29); CHLORIDE 114 mmol/L (98-107); CREATININE 0.95 mg/dL (0.60-1.30); GLOMERULAR FILTR. RATE CALC > 60 mL/min (>60); GLUCOSE,RANDOM 103 mg/dL (70-110); POTASSIUM 3.9 mmol/L (3.5-5.1); SODIUM SERUM 151 mmol/L (136-145)
[2023-01-20 07:17] LABS: VANCOMYCIN,RANDOM 13.2 mcg/mL (25.0-50.0)
[2023-01-20 08:05] VITALS: BP 139/83; PULSE 71; RESP 18; TEMP 98.4
[2023-01-20] MEDS: PANTOPRAZOLE SODIUM 40 MG/VIAL IVP SCH (08:31)
[2023-01-20] MEDS: VANCOMYCIN 1GM/WATER(PEG/NADA) 200 ML IV SCH (08:31)
[2023-01-20] MEDS: MUPIROCIN CALCIUM 2% 22 GM OINTMENT NASAL SCH ×2 (08:31→20:02)
[2023-01-20] MEDS: MetroNIDAZOLE 500 MG TABLET PO SCH ×3 (08:32→20:02)
[2023-01-20] MEDS: AMIODARONE HCL 200 MG TABLET PO SCH ×2 (08:32→20:02)
[2023-01-20] MEDS: CARVEDILOL 3.125 MG TABLET PO SCH ×2 (08:32→20:02)
[2023-01-20] MEDS: APIXABAN 5 MG TABLET PO SCH ×2 (08:32→20:02)
[2023-01-20] MEDS: CHLORHEXIDINE GLUCONATE 4% 118 ML TOPICAL LIQUID TP SCH (08:33)
[2023-01-20 13:27] VITALS: BP 134/82; PULSE 75; RESP 18; TEMP 98.2
[2023-01-20 15:28] VITALS: BP 130/82; PULSE 77; RESP 18; TEMP 98.4
[2023-01-20] MEDS: VANCOMYCIN HCL 1.25 GM in DEXTROSE 5%-WATER 250 ML IV SCH ×2 (16:00→23:29)
[2023-01-20] MEDS: BENZONATATE 100 MG CAPSULE PO PRN (17:35)
[2023-01-20] MEDS: CefTRIAXone SODIUM 2 GM in DEXTROSE 5%-WATER 50 ML IV SCH (18:34)
[2023-01-20] MEDS: QUEtiapine FUMARATE 25 MG TABLET PO SCH (20:02)
[2023-01-20 20:35] VITALS: BP 157/82; PULSE 80; RESP 18; TEMP 98.8
[2023-01-21 00:44] VITALS: BP 148/80; PULSE 79; RESP 18; TEMP 98
[2023-01-21 05:20] VITALS: BP 121/79; PULSE 75; RESP 18; TEMP 98.5
[2023-01-21 06:09] LABS: ANION GAP 9 mmol/L (8-16); CALCIUM, TOTAL 8.8 mg/dL (8.8-10.5); CARBON DIOXIDE 27 mmol/L (22-29); CHLORIDE 102 mmol/L (98-107); CREATININE 0.94 mg/dL (0.60-1.30); GLOMERULAR FILTR. RATE CALC > 60 mL/min (>60); GLUCOSE,RANDOM 104 mg/dL (70-110); POTASSIUM 3.8 mmol/L (3.5-5.1); SODIUM SERUM 138 mmol/L (136-145)
[2023-01-21 07:40] VITALS: BP 140/76; PULSE 72; RESP 20; TEMP 98.2
[2023-01-21] MEDS: VANCOMYCIN HCL 1.25 GM in DEXTROSE 5%-WATER 250 ML IV SCH ×2 (07:56→16:27)
[2023-01-21] MEDS: MUPIROCIN CALCIUM 2% 22 GM OINTMENT NASAL SCH (07:56)
[2023-01-21] MEDS: PANTOPRAZOLE SODIUM 40 MG/VIAL IVP SCH (07:56)
[2023-01-21] MEDS: APIXABAN 5 MG TABLET PO SCH ×2 (07:57→20:02)
[2023-01-21] MEDS: CARVEDILOL 3.125 MG TABLET PO SCH ×2 (07:57→20:02)
[2023-01-21] MEDS: MetroNIDAZOLE 500 MG TABLET PO SCH ×3 (07:57→20:01)
[2023-01-21] MEDS: AMIODARONE HCL 200 MG TABLET PO SCH ×2 (07:57→20:02)
[2023-01-21] MEDS: CHLORHEXIDINE GLUCONATE 4% 118 ML TOPICAL LIQUID TP SCH (07:57)
[2023-01-21 11:12] VITALS: BP 138/75; PULSE 81; RESP 22; TEMP 98.2
[2023-01-21 15:32] VITALS: BP 121/81; PULSE 75; RESP 21; TEMP 98.5
[2023-01-21] MEDS: CefTRIAXone SODIUM 2 GM in DEXTROSE 5%-WATER 50 ML IV SCH (18:52)
[2023-01-21] MEDS: QUEtiapine FUMARATE 25 MG TABLET PO SCH (20:02)
[2023-01-21 20:24] VITALS: BP 147/74; PULSE 74; RESP 22; TEMP 98.2
[2023-01-22 01:57] VITALS: BP 135/70; PULSE 75; RESP 18; TEMP 98
[2023-01-22] MEDS: VANCOMYCIN HCL 1.25 GM in DEXTROSE 5%-WATER 250 ML IV SCH ×4 (01:58→23:10)
[2023-01-22 05:33] VITALS: BP 132/68; PULSE 75; RESP 21; TEMP 99.3
[2023-01-22 06:00] LABS: ANION GAP 9 mmol/L (8-16); CALCIUM, TOTAL 8.8 mg/dL (8.8-10.5); CARBON DIOXIDE 29 mmol/L (22-29); CHLORIDE 101 mmol/L (98-107); CREATININE 1.05 mg/dL (0.60-1.30); GLOMERULAR FILTR. RATE CALC > 60 mL/min (>60); GLUCOSE,RANDOM 104 mg/dL (70-110); POTASSIUM 3.6 mmol/L (3.5-5.1); SODIUM SERUM 139 mmol/L (136-145)
[2023-01-22] MEDS: APIXABAN 5 MG TABLET PO SCH (08:02)
[2023-01-22] MEDS: MetroNIDAZOLE 500 MG TABLET PO SCH ×3 (08:02→20:32)
[2023-01-22] MEDS: CARVEDILOL 3.125 MG TABLET PO SCH ×2 (08:02→20:32)
[2023-01-22] MEDS: AMIODARONE HCL 200 MG TABLET PO SCH ×2 (08:02→20:32)
[2023-01-22] MEDS: PANTOPRAZOLE SODIUM 40 MG/VIAL IVP SCH (08:03)
[2023-01-22] MEDS: MUPIROCIN CALCIUM 2% 22 GM OINTMENT NASAL SCH ×2 (08:06→20:36)
[2023-01-22] MEDS: CHLORHEXIDINE GLUCONATE 4% 118 ML TOPICAL LIQUID TP SCH (08:07)
[2023-01-22 08:28] VITALS: BP 179/72; PULSE 101; RESP 19; TEMP 98.5
[2023-01-22 13:22] VITALS: BP 148/80; PULSE 78; RESP 20; TEMP 98.4
[2023-01-22 14:54] LABS: COVID AG,FIA SOURCE NASAL SWAB
[2023-01-22 16:16] VITALS: BP 134/77; PULSE 77; RESP 20; TEMP 97.7
[2023-01-22] MEDS: CefTRIAXone SODIUM 2 GM in DEXTROSE 5%-WATER 50 ML IV SCH (17:45)
[2023-01-22 20:20] VITALS: BP 138/72; PULSE 81; RESP 20; TEMP 98.7
[2023-01-22] MEDS: QUEtiapine FUMARATE 25 MG TABLET PO SCH (20:32)
[2023-01-23 00:02] VITALS: BP 138/69; PULSE 76; RESP 18; TEMP 98.3
[2023-01-23 04:34] VITALS: BP 109/64; PULSE 83; RESP 20; TEMP 98.5
[2023-01-23 06:07] LABS: EOSINOPHILS % (AUTO) 2.1 % (1.0-6.0); HEMATOCRIT 41.5 % (41-53); HEMOGLOBIN 13.9 g/dL (13.5-17.5); LYMPHOCYTES # (AUTO) 2.4 K/uL (1.0-4.8); LYMPHOCYTES % (AUTO) 17.5 % (22.0-44.0); MEAN CORPUSCULAR HEMOGLOBIN 30.6 pg (26.0-34.0); MEAN CORPUSCULAR HGB CONC 33.5 G/dL (31.0-37.0); MEAN CORPUSCULAR VOLUME 91 fL (80-100); MONOCYTES # (AUTO) 1.1 K/uL (0.1-1.0); NEUTROPHILS # (AUTO) 9.8 K/uL (1.8-7.7); NEUTROPHILS % (AUTO) 71.4 % (40.0-70.0); PLATELET COUNT (AUTO) 498 K/uL (150-450); RED BLOOD CELL COUNT(AUTO) 4.56 MIL/uL (4.50-5.90)
[2023-01-23 06:15] LABS: ALANINE AMINOTRANSFERASE 33 U/L (12-78); ALBUMIN 2.8 g/dL (3.4-5.0); ALKALINE PHOSPHATASE 40 U/L (46-116); ANION GAP 9 mmol/L (8-16); ASPARTATE AMINOTRANSFERASE 21 U/L (15-37); BILIRUBIN,TOTAL 0.8 mg/dL (0.1-1.0); CALCIUM, TOTAL 8.7 mg/dL (8.8-10.5); CARBON DIOXIDE 27 mmol/L (22-29); CHLORIDE 101 mmol/L (98-107); CREATININE 0.96 mg/dL (0.60-1.30); GLOMERULAR FILTR. RATE CALC > 60 mL/min (>60); GLUCOSE,RANDOM 100 mg/dL (70-110); POTASSIUM 3.5 mmol/L (3.5-5.1); SODIUM SERUM 137 mmol/L (136-145); TOTAL PROTEIN, SERUM 7.8 g/dL (6.4-8.2); VANCOMYCIN,RANDOM 19.5 mcg/mL (25.0-50.0)
[2023-01-23 07:55] VITALS: BP 111/69; PULSE 86; RESP 19; TEMP 98.6
[2023-01-23] MEDS: PANTOPRAZOLE SODIUM 40 MG/VIAL IVP SCH (08:01)
[2023-01-23] MEDS: MetroNIDAZOLE 500 MG TABLET PO SCH ×3 (08:02→20:08)
[2023-01-23] MEDS: CHLORHEXIDINE GLUCONATE 4% 118 ML TOPICAL LIQUID TP SCH (08:02)
[2023-01-23] MEDS: VANCOMYCIN HCL 1.25 GM in DEXTROSE 5%-WATER 250 ML IV SCH ×3 (08:02→23:39)
[2023-01-23] MEDS: AMIODARONE HCL 200 MG TABLET PO SCH ×2 (08:02→20:08)
[2023-01-23] MEDS: CARVEDILOL 3.125 MG TABLET PO SCH ×2 (08:02→20:08)
[2023-01-23] MEDS: MUPIROCIN CALCIUM 2% 22 GM OINTMENT NASAL SCH ×2 (08:03→20:11)
[2023-01-23 12:23] VITALS: BP 132/75; PULSE 65; RESP 19; TEMP 98
[2023-01-23 15:59] VITALS: BP 128/75; PULSE 77; RESP 20; TEMP 98.8
[2023-01-23] MEDS ORDERED: SODIUM BICARBONATE 50 MEQ/50 ML VIAL ONE (17:34)
[2023-01-23] MEDS ORDERED: LIDOCAINE/PF 1% 30 ML VIAL ONE ×2 (17:34→17:49)
[2023-01-23] MEDS ORDERED: VANCOMYCIN HCL 1 GM/VIAL ONE (17:47)
[2023-01-23 19:27] VITALS: BP 141/88; PULSE 76; RESP 19; TEMP 98.4
[2023-01-23] MEDS: CefTRIAXone SODIUM 2 GM in DEXTROSE 5%-WATER 50 ML IV SCH (19:53)
[2023-01-23] MEDS: QUEtiapine FUMARATE 25 MG TABLET PO SCH (20:07)
[2023-01-24 01:50] VITALS: BP 127/72; PULSE 77; RESP 18; TEMP 98.5
[2023-01-24 04:30] VITALS: BP 129/68; PULSE 72; RESP 18; TEMP 98.1
[2023-01-24] MEDS ORDERED: LIDOCAINE/PF 2% 5 ML SYRINGE IVP ONE (06:27)
[2023-01-24] MEDS ORDERED: PROPOFOL 1% 20 ML VIAL IVP ONE (06:27)
[2023-01-24] MEDS ORDERED: DiphenhydrAMINE HCL 50 MG/ML VIAL IVP ONE (06:27)
[2023-01-24] MEDS ORDERED: LIDOCAINE/PF 2% 5 ML VIAL IM ONE (06:27)
[2023-01-24] MEDS ORDERED: CALCIUM CHLORIDE 100 MG/ML 10 ML SYRINGE IVP ONE (06:27)
[2023-01-24 07:22] LABS: ANION GAP 7 mmol/L (8-16); CALCIUM, TOTAL 8.6 mg/dL (8.8-10.5); CARBON DIOXIDE 28 mmol/L (22-29); CHLORIDE 101 mmol/L (98-107); CREATININE 0.95 mg/dL (0.60-1.30); GLOMERULAR FILTR. RATE CALC > 60 mL/min (>60); GLUCOSE,RANDOM 104 mg/dL (70-110); POTASSIUM 3.9 mmol/L (3.5-5.1); SODIUM SERUM 136 mmol/L (136-145)
[2023-01-24 08:01] VITALS: BP 148/89; PULSE 92; RESP 19; TEMP 98.8
[2023-01-24] MEDS: VANCOMYCIN HCL 1.25 GM in DEXTROSE 5%-WATER 250 ML IV SCH (08:06)
[2023-01-24] MEDS: PANTOPRAZOLE SODIUM 40 MG/VIAL IVP SCH (08:07)
[2023-01-24] MEDS: MetroNIDAZOLE 500 MG TABLET PO SCH (08:07)
[2023-01-24] MEDS: AMIODARONE HCL 200 MG TABLET PO SCH (08:07)
[2023-01-24] MEDS: CARVEDILOL 3.125 MG TABLET PO SCH (08:07)
[2023-01-24] MEDS: MUPIROCIN CALCIUM 2% 22 GM OINTMENT NASAL SCH (08:22)
[2023-01-24] MEDS: ACETAMINOPHEN 325 MG TABLET PO PRN (08:22)
[2023-01-24] MEDS: CHLORHEXIDINE GLUCONATE 4% 118 ML TOPICAL LIQUID TP SCH (08:24)
[2023-01-24] MEDS ORDERED: APIXABAN 5 MG TABLET PO SCH (09:00)
[2023-01-24] MEDS ORDERED: AMIODARONE HCL 200 MG TABLET PO SCH (09:00)
[2023-01-24 11:31] VITALS: BP 125/78; PULSE 75; RESP 19; TEMP 98
[2023-01-24] MEDS ORDERED: AMIO200 PO (13:52)
[2023-01-24] MEDS ORDERED: APIX5TAB PO (13:52)
[2023-01-24] MEDS ORDERED: CLIN300C58 PO (13:52)
[2023-01-24] MEDS ORDERED: QUET25TA36 PO (13:52)
[2023-01-24] MEDS ORDERED: CARV3 PO (13:52)
[2023-01-24] MEDS ORDERED: FentaNYL CITRATE PF 100 MCG/2 ML VIAL IVP ONE (17:25)
[2023-01-24] MEDS ORDERED: MIDAZOLAM HCL 2 MG/2 ML VIAL IVP ONE (17:25)
[2023-01-26] MEDS ORDERED: SULF-261 PO (09:26)
== END 2023-01-24 17:26 | disposition home or self-care (01) | DRG 853 ==
LOC: EMS 08:24 → ICUN 10:14 → ICU 13:29 → 5S 01-18 19:50
PROVIDERS: ADMIT Internal Medicine; ATTEND Internal Medicine
PROC: 5A1945Z Respiratory Ventilation, 24-96 Consecutive Hours (ICD-10-PCS; principal; 2023-01-12)
PROC: 0BH17EZ Insertion of Endotracheal Airway into Trachea, Via Natural or Artificial Opening (ICD-10-PCS; 2023-01-12)
PROC: 4A023N7 Measurement of Cardiac Sampling and Pressure, Left Heart, Percutaneous Approach (ICD-10-PCS; 2023-01-12)
PROC: B2111ZZ Fluoroscopy of Multiple Coronary Arteries using Low Osmolar Contrast (ICD-10-PCS; 2023-01-12)
PROC: B2151ZZ Fluoroscopy of Left Heart using Low Osmolar Contrast (ICD-10-PCS; 2023-01-12)
PROC: 5A0935A Assistance with Respiratory Ventilation, Less than 24 Consecutive Hours, High Flow/Velocity Cannula (ICD-10-PCS; 2023-01-16)
PROC: 05HC33Z Insertion of Infusion Device into Left Basilic Vein, Percutaneous Approach (ICD-10-PCS; 2023-01-16)
PROC: 05HC33Z Insertion of Infusion Device into Left Basilic Vein, Percutaneous Approach (ICD-10-PCS; 2023-01-17)
PROC: 05HF33Z Insertion of Infusion Device into Left Cephalic Vein, Percutaneous Approach (ICD-10-PCS; 2023-01-17)
PROC: 0JH608Z Insertion of Defibrillator Generator into Chest Subcutaneous Tissue and Fascia, Open Approach (ICD-10-PCS; 2023-01-23)
PROC: 0JH60FZ Insertion of Subcutaneous Defibrillator Lead into Chest Subcutaneous Tissue and Fascia, Open Approach (ICD-10-PCS; 2023-01-23)
DX: A41.9 Sepsis, unspecified organism (principal); I46.9 Cardiac arrest, cause unspecified; I50.21 Acute systolic (congestive) heart failure; J96.02 Acute respiratory failure with hypercapnia; J15.29 Pneumonia due to other staphylococcus; J15.5 Pneumonia due to Escherichia coli; I49.01 Ventricular fibrillation; G93.40 Encephalopathy, unspecified; I42.9 Cardiomyopathy, unspecified; E87.0 Hyperosmolality and hypernatremia; E87.20 Acidosis, unspecified; Z20.822 Contact with and (suspected) exposure to COVID-19; E11.65 Type 2 diabetes mellitus with hyperglycemia; E87.6 Hypokalemia; I48.0 Paroxysmal atrial fibrillation; I80.8 Phlebitis and thrombophlebitis of other sites; F41.9 Anxiety disorder, unspecified; F32.A Depression, unspecified; R74.01 Elevation of levels of liver transaminase levels; Z86.16 Personal history of COVID-19
CPT/HCPCS: 33249; 36245; 36569; 36600; 70450; 71045; 71046; 71275; 72125; 76000; 76937; 80048; 80053; 80061; 80202; 80307; 81001; 81002; 82140; 82550; 82805; 82962; 83036; 83605; 83735; 83880; 84100; 84132; 84145; 84439; 84443; 84484; 85025; 85610; 85730; 87040; 87070; 87081; 87205; 87804; 92507; 92526; 92610; 93005; 93306; 93971; 94002; 94003; 95816; 97110; 97116; 97163; 97166; 97530; 97535; 99291; C9113; G0238; G0378; G0480; J0171; J0282; J0360; J0456; J0690; J0696; J1200; J1265; J1644; J1940; J2060; J2250; J2370; J2405; J2543; J2704; J3010; J3370; J3480; J3490; J7030; J7040; J7050; J7060; Q9967; 36415-L1; 36415-TC